=== PATIENT | female | born 1985 ===

== ENCOUNTER 2018-10-31 12:04 | Emergency (ER) | payer MEDICAID, OTHER ==
[2018-10-31 14:00] VITALS: BP 169/90
--- NOTE | 2018-10-31 14:11 | UC ---
UC General HPI - HPI Summary HPI Summary: around 10am today, pt tripped and fell into a baby gait injuring her R hand. c/o pain, bruising and swelling R 5th finger and base of hand. unable to move the pinky. - History of Current Complaint Chief Complaint: UCUpperExtremity Stated Complaint: RIGHT HAND PINKY INJURY Time Seen by Provider: 10/31/18 13:55 Hx Obtained From: Patient Hx Last Menstrual Period: end of Sep 2018 Onset/Duration: Sudden Onset Timing: Constant Pain Intensity: 6 Associated Signs & Symptoms: Negative: Fever - Allergy/Home Medications Allergies/Adverse Reactions: Allergies Allergy/AdvReac Type Severity Reaction Status Date / Time Adhesive Tape Allergy Rash Verified 10/31/18 14:00 PMH/Surg Hx/FS Hx/Imm Hx Previously Healthy: Yes - Surgical History Surgical History: Yes Surgery Procedure, Year, and Place: 2 C-SECT; tubal ligation. T & A - Social History Lives: With Family Alcohol Use: None Substance Use Type: None Smoking Status (MU): Heavy Every Day Tobacco Smoker Review of Systems All Other Systems Reviewed And Are Negative: Yes Constitutional: Positive: Negative Skin: Positive: Negative Eyes: Positive: Negative ENT: Positive: Negative Respiratory: Positive: Negative Cardiovascular: Positive: Negative Gastrointestinal: Positive: Negative Genitourinary: Positive: Negative Motor: Positive: Negative Neurovascular: Positive: Negative Psychological: Positive: Negative Is Patient Immunocompromised?: No Physical Exam Triage Information Reviewed: Yes Appearance: Well-Appearing Vital Signs: Initial Vital Signs Temp 98.1 F 10/31/18 13:54 Pulse 89 10/31/18 13:54 Resp 18 10/31/18 13:54 BP 169/90 10/31/18 13:54 Pulse Ox 96 10/31/18 13:54 Eyes: Positive: Conjunctiva Clear ENT: Positive: Normal ENT inspection Neck: Positive: Supple Respiratory: Positive: Lungs clear Cardiovascular: Positive: RRR Abdomen Description: Positive: Nontender Bowel Sounds: Positive: Present Musculoskeletal: Positive: Other: - RUE: hand=5th finger is purple, swollen and has limited rom. gross s/v is intact. base of hand on ulnar side with mild bruising. hand otherwise has full s/v/m function. Rest of arm is non tender/ unremarkable. Neurological: Positive: Alert Psychological: Positive: Age Appropriate Behavior Skin Exam: Normal Diagnostics - Radiology No standard instances Radiology Interpretation Completed By: Radiologist - HAND=NO FX Course/Dx - Course Course Of Treatment: POST XRAY, NO LATERAL LIGAMENT INSTABILITY WITH STRESSING PLUS PT FULLY EXTENDED AND BENT FINGER. PROCEDURE BY THIS PROVIDER: COTTON PLACED BETWEEN 4TH/5TH FINGERS. DIGITS NYDIA TAPED. ALUMINUM VOLAR SPLINT 5TH FINER THE VINNY TO 4TH/5TH FINGERS. S/V INTACT PER& POST SPLINTING. - Diagnoses Provider Diagnosis: Contusion of right hand, Sprain of right ring finger Discharge - Sign-Out/Discharge Documenting (check all that apply): Patient Departure All imaging exams completed and their final reports reviewed: Yes - Discharge Plan Condition: Stable Disposition: HOME Patient Education Materials: Contusion in Adults (ED), Finger Sprain (ED) Forms: *Work Release Referrals: Pamela Qiu MD [Primary Care Provider] - 5 Days Additional Instructions: SPLINT UNTIL CLEARED. - Billing Disposition and Condition Condition: STABLE Disposition: Home - Attestation Statements Provider Attestation: I was available for consult. This patient was seen by the BLESSING. The patient was not presented to, seen by, or examined by me. EK
== END 2018-10-31 15:02 | disposition home or self-care (01) ==
LOC: UCCORT 12:04
DX: S60.221A Contusion of right hand, initial encounter (principal); S63.614A Unspecified sprain of right ring finger, initial encounter; F17.200 Nicotine dependence, unspecified, uncomplicated; Z91.09 Other allergy status, other than to drugs and biological substances; W01.0XXA Fall on same level from slipping, tripping and stumbling without subsequent striking against object, initial encounter; Y92.9 Unspecified place or not applicable
CPT/HCPCS: 99211; G0463